=== PATIENT | male | born 1965 | race Caucasian/White ===

== ENCOUNTER 2018-01-10 22:33 | Emergency (ER) | payer BC ==
[2018-01-10] MEDS ORDERED: Oxymetazoline 0.05% Nasal Spray 15 ML Bottle NAS ONE (22:35)
--- NOTE | 2018-01-10 23:29 | EDM.PDOC ---
ED HPI GENERAL MEDICAL PROBLEM - General Chief Complaint: ENT Problem Stated Complaint: nosebleed Time Seen by Provider: 01/10/18 22:34 Source of Information: Reports: Patient History Limitations: Reports: No Limitations - History of Present Illness INITIAL COMMENTS - FREE TEXT/NARRATIVE: Pt. presents to ER with complaints of epistaxis from L nare. He states that it started spontaneously. Denies any trauma. He is not on blood thinners. The nosebleed almost completely resolved on arrival to ER. Location: Reports: Face - Related Data Allergies Allergy/AdvReac Type Severity Reaction Status Date / Time No Known Allergies Allergy Verified 01/10/18 22:35 Home Meds: Home Meds . [No Known Home Meds] 01/10/18 [History] Past Medical History - Past Health History Medical/Surgical History: Denies Medical/Surgical History Social & Family History - Tobacco Use Smoking Status *Q: Unknown Ever Smoked ED ROS GENERAL - Review of Systems Review Of Systems: See Below HEENT: Reports: Nosebleed. Denies: Nose Pain, Rhinitis, Sinus Problem Respiratory: Reports: No Symptoms Cardiovascular: Reports: No Symptoms ED EXAM, GENERAL - Physical Exam Exam: See Below Exam Limited By: No Limitations General Appearance: Alert, WD/WN, No Apparent Distress Eye Exam: Bilateral Eye: EOMI Nose: Other (numerous blood clots noted in L nare. No active bleeding.). No: Nasal Tenderness Neck: Normal Inspection, Supple, Non-Tender, Full Range of Motion Respiratory/Chest: No Respiratory Distress, Lungs Clear, Normal Breath Sounds, No Accessory Muscle Use, Chest Non-Tender Cardiovascular: Normal Peripheral Pulses, Regular Rate, Rhythm, No Edema, No Gallop, No JVD, No Murmur, No Rub ED GENERAL MEDICAL PROCEDURES - Additional/Other Procedure(s) Other (Free Text) Procedure(s): 2 sprays of afrin nasal spray were instilled in L nare. examination of the nasal mucosa did not reveal any active bleeding. 2 small areas were cauterized with silver nitrate sticks. Course - Vital Signs Last Recorded V/S: Last Vital Signs Temp 36.6 C 01/10/18 22:34 Pulse 78 01/10/18 22:34 Resp 14 01/10/18 22:34 BP 145/93 H 01/10/18 22:34 Pulse Ox 96 01/10/18 22:34 - Orders/Labs/Meds Meds: Medications Discontinued Medications Generic Name Dose Route Start Last Admin Trade Name Shayne PRN Reason Stop Dose Admin Oxymetazoline HCl 1 ml 01/10/18 22:35 01/10/18 22:41 Afrin Original 0.05% Nasal [place] GABINO 01/10/18 22:36 1 ml ONETIME ONE Administration Departure - Departure Time of Disposition: 23:02 Disposition: Home, Self-Care 01 Clinical Impression: Epistaxis - Discharge Information Instructions: Nosebleed, Adult, [id number] Referrals: PCP,None [Primary Care Provider] - Forms: ED Department Discharge Additional Instructions: If you have recurrent of the bleeding, return to ER and I will place a nasal pack. Do not blow your nose our put anything in your nose for 48 hours.
== END 2018-01-10 23:02 | disposition home or self-care (01) ==
LOC: VM.ED 22:33
DX: R04.0 Epistaxis (principal)
CPT/HCPCS: 30901; 99283; A9270-GY

== ENCOUNTER 2022-03-03 00:49 | Emergency (ER) | payer BC ==
[2022-03-03] MEDS ORDERED: Oxymetazoline 0.05% Nasal Spray 30 ML Bottle ONE (00:56)
[2022-03-03 01:26] LABS: ANION GAP 16.8 mmol/L (5-15)
[2022-03-03 01:32] LABS: PTT,PARTIAL THROMBOPLSTIN TIME 26.1 SEC (20.5-30.9)
== END 2022-03-03 01:45 | disposition home or self-care (01) ==
LOC: VM.ED 00:49
DX: R04.0 Epistaxis (principal)
CPT/HCPCS: 30901; 36415; 80053; 85025; 85610; 85730; 99283; A9270-GY

== ENCOUNTER 2022-12-22 06:44 | Day surgery (SDC) | payer BC ==
[2022-12-22] MEDS ORDERED: fentaNYL 100 MCG/2 ML SDV ONE (07:11)
[2022-12-22] MEDS ORDERED: Propofol 200 MG/20 ML SDV ONE ×2 (07:11→09:18)
[2022-12-22] MEDS: Lactated Ringers 1,000 ML IV SCH (07:30)
== END 2022-12-22 10:50 | disposition home or self-care (01) ==
LOC: VM.SDS 06:44
PROVIDERS: ATTEND Student in an Organized Health Care Education/Training Program
DX: Z12.11 Encounter for screening for malignant neoplasm of colon (principal); D12.5 Benign neoplasm of sigmoid colon; I10 Essential (primary) hypertension; M54.16 Radiculopathy, lumbar region; E66.01 Morbid (severe) obesity due to excess calories; Z79.899 Other long term (current) drug therapy; Z80.0 Family history of malignant neoplasm of digestive organs
CPT/HCPCS: 00812; J2704; J3010; J7120